=== PATIENT | female | born 1985 | race Caucasian/White ===

== ENCOUNTER 2020-08-31 23:49 | Emergency (ER) | payer BC, SELFPAY ==
--- NOTE | ~2020-08-31 | XR_ITS ---
EXAMINATION: XR elbow RT min 3V DATE: 09/01/2020 00:21 INDICATION: Right elbow pain TECHNIQUE: Anteroposterior, two oblique and lateral views of the right elbow were obtained. COMPARISON: None. FINDINGS: Alignment is normal. No fracture or joint effusion. Joint spaces are normal. Soft tissues a re unremarkable. IMPRESSION: 1. No acute osseous abnormality. Reviewed, dictated and finalized at location A. [facility]
[2020-08-31 23:52] VITALS: BP 133/73; PULSE 77; RESP 18; TEMP 36.6; O2SAT 100
[2020-09-01] VITALS (9 sets, daily range): BP systolic 100–115; BP diastolic 63–72; PULSE 98; RESP 18; O2SAT 100
[2020-09-01] MEDS: IBUPROFEN 600 MG TABLET PO (00:04)
[2020-09-01] MEDS: ONDANSETRON HCL ODT 4 MG TABLET PO (00:05)
--- NOTE | 2020-09-01 00:07 | ECG_ITS ---
Measurements Intervals [place] Rate: 69 P: 64 RI: 141 QRS: 42 QRSD: 89 T: 46 QT: 384 QTc: 413 Interpretive Statements SINUS RHYTHM NORMAL ECG Electronically Signed On 09-01-2020 7:02:54 PRENATAL NURSE by Chauncey Estevez D.O.
--- NOTE | 2020-09-01 00:44 | ED.UPPEXIN ---
HPI - Extremity Injury (Upper) General Chief Complaint: Extremity Injury, Upper Stated Complaint: Fell on right arm Time Seen by Provider: 08/31/20 23:52 Source: patient Mode of arrival: ambulatory Limitations: no limitations History of Present Illness HPI narrative: This patient is a 35 year old left hand dominant female who presents for evaluation of right arm pain. She states she accidentally fell with an outstretched right arm landing on her right hand. She denies hand pain. She states she felt pop in right elbow . She is able to move her pain. She denies numbness or tingling. She reports her pain is only 2/10. She reports mild pain located to right elbow. She denies headache or hitting her head. She states after she fell she develop dizziness with nausea and an episode of emesis. She denies any currently. Related Data Home Medications Medication Instructions Recorded Confirmed No Home Medications 06/11/20 07/23/20 Allergies Allergy/AdvReac Type Severity Reaction Status Date / Time No Known Allergies Allergy Unverified 09/01/20 00:01 Review of Systems Review of Systems: All systems reviewed & are unremarkable except as noted in HPI and below PMFSH Past Medical History Medical History (Updated 09/01/20 @ 01:12 by Jasmyn Vargas MD) Patient denies medical problems Social History Social History (Updated 07/23/20 @ 15:01 by Keyanna Castro) Smoking status: Never smoker Alcohol intake: never Substance use: never Gender identity (if verbalized by the patient): Female Sexual Orientation (if Verbalized by the Patient): Straight or Heterosexual Exam Const: General: no acute distress and alert Orientation/consciousness: patient oriented x3 HENMT: Head: normocephalic and atraumatic Face and sinus: face symmetric Eyes: EOM: EOMs intact bilaterally Chest: Chest palpation & inspection: normal inspection of the chest Resp: Effort & Inspection: normal respiratory effort and no retractions Auscultation: clear to auscultation bilaterally Cardio: Rate: regular rate Rhythm: regular rhythm Heart sounds: no murmurs GI: GI Palp: Yes Soft to palpation, No Tenderness to palpation present (GI) and No Guarding due to palpation present (GI) Auscultation: normal bowel sounds Skin: General skin exam: normal color Rashes: no rashes Wounds: no wounds Other: no bruising Neuro: General: patient oriented x3 and moves all extremities Extrem: General: no clubbing, cyanosis or edema and no pedal edema Other: no bruising swelling, no deformity. mild TTP posterior elbow, no swelling, FROM Psych: Mental Status: mental status grossly normal Affect: normal affect Course Reevaluation(s) Reevaluation #1: I discussed with patient that I did not see a fracture but radiology will review in the morning. She will be informed if a discrepancy is seen. She reports minimal pain. Date: 09/01/20 Time: 01:09 Vital Signs Vital signs: Vital Signs Temperature 98 F 08/31/20 23:52 Pulse Rate 77 08/31/20 23:52 Respiratory Rate 18 08/31/20 23:52 Blood Pressure 133/73 08/31/20 23:52 Pulse Oximetry 100 08/31/20 23:52 Temperature 98 F 08/31/20 23:52 Pulse Rate 98 09/01/20 01:24 Respiratory Rate 18 09/01/20 01:24 Blood Pressure 104/70 09/01/20 01:24 Pulse Oximetry 100 09/01/20 01:24 MDM - Extremity Injury (Upper) Imaging Data Attestation: I personally reviewed and interpreted this imaging study as follows: My impression: right elbow- no acute fractures seen Discharge Plan Discharge Clinical Impression: Strain of elbow, right Qualifiers: Encounter type: initial encounter Qualified Code(s): S46.911A - Strain of unspecified muscle, fascia and tendon at shoulder and upper arm level, right arm, initial encounter Patient Disposition: Home, Self-Care Condition: Stable Instructions: How to Use a Sling (ED), Elbow Sprain (ED) Additional Instructions: Cont
== END 2020-09-01 01:26 | disposition home or self-care (01) ==
PROVIDERS: Emergency Provider General Practice; PCP Family Medicine
DX: S46.911A Strain of unspecified muscle, fascia and tendon at shoulder and upper arm level, right arm, initial encounter (principal); W19.XXXA Unspecified fall, initial encounter
CPT/HCPCS: 73080; 93005; 99283; A4565; A9270

== ENCOUNTER 2022-11-17 00:30 | Day surgery (SDC) | payer BC, SELFPAY ==
[2022-11-03 13:50] VITALS: BMI 26.1
[2022-11-17 08:09] VITALS: BP 117/82; PULSE 78; RESP 20; TEMP 36.3; O2SAT 100
--- NOTE | 2022-11-17 08:19 | P.PNAN_ITS ---
Anes - Initial Pre Proc Eval Procedure: Operation Date: 11/17/22 09:00 Proposed Procedures p Colonoscopy - Larry Baez MD Date/Time: 11/17/22 08:19 Surgeon: Larry Baez MD Pre Op Diagnosis: Rectal pain Patient Data Age: 37 Gender: F Height: 1.55 m Weight: 61.8 kg Last Vital Signs Temp 36.3 C L 11/17/22 08:09 Pulse 78 11/17/22 08:09 Resp 20 11/17/22 08:09 BP 117/82 11/17/22 08:09 Pulse Ox 100 11/17/22 08:09 O2 Del Method Room Air 11/17/22 08:09 Allergies Allergy/AdvReac Type Severity Reaction Status Date / Time No Known Allergies Allergy Verified 11/17/22 08:09 Home Medications Medication Instructions Recorded Confirmed Type No Home Medications 06/11/20 11/03/22 History Patient hx anesthesia problems: none Family hx anesthesia problems: none Results Review: All pre-operative results and documents have been reviewed as part of the pre- operative evaluation. [facility] Past Medical History Medical History Patient denies medical problems Family History Family History Father Hypertension Grandparent Family history of lymphoma Other Family history of malignant neoplasm of gastrointestinal tract Social History Social History Smoking status: Never smoker Alcohol intake: current Alcohol use details: twice a month Substance use: never Substance use type: does not use Living arrangements: with family Occupation/Education: occupation Gender identity (if verbalized by the patient): Female Sexual Orientation (if Verbalized by the Patient): Straight or Heterosexual Spiritual care concerns: No Anes - Eval Final PreProcedure Day of Procedure 11/17/22 08:19 Patient weight: normal Heart: regular rate and rhythm Lungs: clear to auscultation Airway: Mallampati scale class II Neurological: alert and oriented Last oral intake: >/= 8 hours ASA classification: I Emergent: no Anesthetic plan: proceed Anesthesia type and monitoring: general GIVS and standard monitoring Results Review: All pre-operative results and documents have been reviewed as part of the pre- operative evaluation. Informed Consent: The patient's anesthetic plan and its attendant risks and benefits were discussed with the patient/family/POA. Questions were solicited and answers provided to the satisfaction of the patient/family/POA.
[2022-11-17] MEDS: LACTATED RINGERS 1,000 ML 150 ML IV CONT (08:23)
--- NOTE | 2022-11-17 08:45 | PM.HPGS ---
History of Present Illness History of Present Illness Consent: Risks, benefits, and alternatives have been discussed and questions answered. Patient agrees to proceed with procedure. Chief complaint: Rectal pain Narrative: Yuliya Smith is a 37 year old female with episodes of intermittent rectal pain at night but she has not had any for several weeks now, never had colonoscopy Review of Systems Constitutional: Constitutional: Denies headache(s) and Denies weakness Eyes: Eyes: Denies blurry vision ENT: Reports Normal hearing present, Denies headache(s) and Denies neck pain Cardiovascular: Cardiovascular: Denies chest pain and Denies dyspnea Respiratory: Respiratory: Denies dyspnea Gastrointestinal: Gastrointestinal: Reports no additional gastrointestinal complaints Genitourinary: Genitourinary: Denies dysuria Musculoskeletal: Musculoskeletal: Denies neck pain Integumentary/Breasts: Skin/Breast: Denies dry skin Neurologic: Reports Normal hearing present, Denies headache(s) and Denies weakness Psychiatric: Psychiatric: Denies anxiety Endocrine: Endocrine: Denies change in body appearance Hematologic/Lymphatic: Hematologic/Lymphatic: Denies easy bleeding Allergic/Immunologic: Allergic/Immunologic: Denies urticaria PMFSH Past Medical History Medical History (Updated 11/17/22 @ 08:46 by Larry Baez MD) Patient denies medical problems Rectal pain Family History Family History Father Hypertension Grandparent Family history of lymphoma Other Family history of malignant neoplasm of gastrointestinal tract Social History Social History Smoking status: Never smoker Alcohol intake: current Alcohol use details: twice a month Substance use: never Substance use type: does not use Living arrangements: with family Occupation/Education: occupation Gender identity (if verbalized by the patient): Female Sexual Orientation (if Verbalized by the Patient): Straight or Heterosexual Spiritual care concerns: No Meds Home Medications and Allergies Home Medications Medication Instructions Recorded Confirmed Type No Home Medications 06/11/20 11/03/22 History Allergies Allergy/AdvReac Type Severity Reaction Status Date / Time No Known Allergies Allergy Verified 11/17/22 08:09 Vital Signs Vital Signs - 24 hr 11/17/22 08:09 Temperature 97.4 F L Pulse Rate 78 Respiratory Rate 20 Blood Pressure 117/82 Pulse Oximetry 100 Oxygen Delivery Room Air Exam Const: General: comfortable and no acute distress HENMT: Face/Nose/Sinus: Normal nares present Eyes: General: appearance normal, both eyes and all related structures Neck: Neck: no JVD Resp: Auscultation: clear to auscultation bilaterally Cardio: Rate: regular rate Rhythm: regular rhythm GI: Inspection: non-distended GI Palp: Yes Soft to palpation Skin: General skin exam: normal color Neuro: General: gait normal Speech: normal speech Extrem: General: normal to inspection Psych: Mental Status: mental status grossly normal Assessment and Plan Assessment and plan (1) Rectal pain: Code(s): K62.89 - Other specified diseases of anus and rectum Status: Acute Assessment and Plan: colonoscopy
[2022-11-17 09:07] VITALS: BP 100/66; PULSE 79; RESP 17; O2SAT 100
[2022-11-17 09:17] VITALS: BP 92/65; PULSE 82; RESP 15; O2SAT 100
[2022-11-17 09:27] VITALS: BP 102/72; PULSE 71; RESP 13; O2SAT 100
== END 2022-11-17 09:35 | disposition home or self-care (01) ==
PROVIDERS: PCP Family Medicine; Visit Provider Internal Medicine Gastroenterology
PROC: 0DJD8ZZ Inspection of Lower Intestinal Tract, Via Natural or Artificial Opening Endoscopic (ICD-10-PCS; CPT 45378; principal; 2022-11-17 09:00)
DX: D12.0 Benign neoplasm of cecum (principal); K64.8 Other hemorrhoids
CPT/HCPCS: 45380; 88305; J2704; J7120